=== PATIENT | female | born 1995 ===

== ENCOUNTER 2017-02-02 20:55 | Emergency (ER) | payer SELFPAY ==
[2017-02-02] MEDS ORDERED: CYCLOBENZAPRINE5 M1 PO (21:01)
[2017-02-02] MEDS ORDERED: VALIUM5 M1 PO (21:01)
[2017-02-02] MEDS ORDERED: BUSPIRONE HCL15 M2 PO (21:02)
[2017-02-02] MEDS ORDERED: IBUPROFEN600 M1 PO (22:13)
[2017-02-02] MEDS ORDERED: CYCLOBENZAPRINE10 M1 PO (22:13)
== END 2017-02-02 22:25 ==
LOC: EDMED 20:55
DX: S13.4XXA Sprain of ligaments of cervical spine, initial encounter (principal); S76.011A Strain of muscle, fascia and tendon of right hip, initial encounter; M62.830 Muscle spasm of back; F41.9 Anxiety disorder, unspecified; V49.40XA Driver injured in collision with unspecified motor vehicles in traffic accident, initial encounter; Y92.410 Unspecified street and highway as the place of occurrence of the external cause